=== PATIENT | female | born 1985 | race Caucasian/White ===

== ENCOUNTER 2022-02-13 07:29 | Day surgery (SDC) | payer MEDICAID ==
[~2022-02-13] VITALS: Ht 162.6 cm; Wt 61.8 kg
[~2022-02-13 07:29] MED LIST: BUPR-344 PO; FAMO20 PO; GABA-1181 PO; HYDR-4808 PO; LINA72CA PO; NAPR-1025 PO; ONDA-104 PO; SODIUM CHLORIDE 0.9% 1,000 ML ONE
[2022-02-13] MEDS ORDERED: SODIUM CHLORIDE 0.9% 1,000 ML IV ONE (07:30)
[2022-02-13 08:16] LABS: COVID AG,FIA SOURCE NASAL SWAB
[2022-02-13] MEDS ORDERED: LIDOCAINE/PF 2% 5 ML VIAL IM ONE (12:00)
[2022-02-13] MEDS ORDERED: PROPOFOL 1% 20 ML VIAL IVP ONE (12:00)
[2022-02-13] MEDS ORDERED: OXYGEN THERAPY IH SCH (20:00)
== END 2022-02-13 11:45 | disposition home or self-care (01) ==
LOC: SURGERY 07:29
PROVIDERS: ATTEND Specialist
DX: D12.2 Benign neoplasm of ascending colon (principal); K64.0 First degree hemorrhoids; Z98.890 Other specified postprocedural states; Z98.51 Tubal ligation status; Z79.899 Other long term (current) drug therapy
CPT/HCPCS: 45385; 45398; 84703; 87426; 88305; C1769; C9803; J2704; J3490; J7030